=== PATIENT | female | born 1995 | race Caucasian/White ===

== ENCOUNTER 2019-06-04 23:52 | Emergency (ER) | payer OTHER ==
--- NOTE | 2019-06-04 23:56 | PDOC ---
History of Present Illness - General Chief Complaint: Pain, Acute Stated Complaint: BURNING/THROBBING TO VAGINA Time Seen by Provider: 06/04/19 23:54 - History of Present Illness Initial Comments: This otherwise healthy 23-year-old female presents with 2 day history of vaginal and vulvar itching/burning pain. Patient denies vaginal discharge. She is currently menstruating and has had regular menstrual cycles. No previous history of vaginal discharge, discomfort or itching. No history of STD. Patient states that she is not sexually active and denies previous sexual activity. She has had mild burning with urination and one episode of urinary urgency in the last 1-2 days. No history of previous urinary tract infection. No recent fever/chills. She denies abdominal or flank pain. No recent antibiotic or other medication use. She had upper respiratory infection last week which was not treated and resolved spontaneously. Past History - Past Medical History Allergies/Adverse Reactions: Allergies Allergy/AdvReac Type Severity Reaction Status Date / Time No Known Allergies Allergy Verified 06/04/19 23:53 Home Medications: Ambulatory Orders Fluconazole [Diflucan] 150 mg PO ONCE #2 tablet 06/05/19 Review of Systems - Review of Systems Able to Perform ROS?: Yes Comments:: 12 point review of systems is negative except for what is noted in the history of present illness *Physical Exam - Physical Exam Comments: GENERAL: Adult female, mildly anxious but in no acute distress HEAD: Normal with no signs of trauma. EYES: PERRLA, EOMI, sclera anicteric, conjunctiva clear. ENT: Ears normal, nares patent, oropharynx clear without exudates. Moist mucous membranes. NECK: Normal range of motion, supple without lymphadenopathy, JVD, or masses. LUNGS: Breath sounds equal, clear to auscultation bilaterally. No wheezes, and no crackles. HEART:Regular rate and rhythm, normal S1 and S2 without murmur, rub or gallop. ABDOMEN:.normal bowel sounds No guarding,tenderness or rebound.No masses No distention. PELVIC: Moderate erythema, mild edema of external vulva; scant whitish discharge without odor EXTREMITIES: Normal range of motion, no edema. No clubbing or cyanosis. No erythema, or tenderness. NEUROLOGICAL: Cranial nerves II through XII grossly intact. Normal speech. No focal neurological deficits. MUSCULOSKELETAL: Back non-tender to palpation, no CVA tenderness SKIN: Warm, Dry, normal turgor, no rashes or lesions noted. Medical Decision Making - Medical Decision Making 23-year-old woman presents with 2 day history of progressive itching and burning pain of the vagina and external vulva. No recent antibiotic use; no recent sexual activity. No previous history of yeast infection or other acute gynecologic issues. exam as noted History and physical exam consistent with vulvovaginal candidiasis UA/urine culture and sensitivity sent to fully rule out UTI but patient will be treated presumptively for the candidiasis. Prescription sent for Diflucan 150 mg 1 tablet to be taken once with additional tablet(to be taken 24 hours if symptoms are persistent). Meanwhile, the patient should drink plenty of water, rest. She should plan on following up with her rn case manager hospice within the next 3 days. She should see her rn case manager hospice sooner or return to the ER if she has recurrent severe symptoms. *DC/Admit/Observation/Transfer Diagnosis at time of Disposition: Vaginal candidiasis - Discharge Dispostion Disposition: HOME Condition at time of disposition: Stable - Prescriptions Prescriptions: Fluconazole [Diflucan] 150 mg PO ONCE #2 tablet - Referrals - Patient Instructions Printed Discharge Instructions: DI for Vaginal Yeast Infection Additional Instructions: Diflucan 150 mg by mouth once If symptoms are still present in 24 hours, take an additional 150 mg tablet Drink plenty of water Follow-up with your rn case manager hospice within the next 3 days Follow-up with your general medical doctor within 1 week Return to ER if you have worsening pain or develop vomiting or fever - Post Discharge Activity
[2019-06-04 23:58] VITALS: TEMP 98.1; BMI 29.1
[2019-06-05 00:28] VITALS: BP 122/79; PULSE 81
[2019-06-05 01:12] LABS: EPI CELLS 1.4 /HPF (0-5/HPF); HYALINE CASTS 1 /lpf (0-8); PH,URINE 5.5 (5.0-8.0); URINE APPEARANCE CLEAR; URINE BACTERIA 15.4 /hpf (NEGATIVE); URINE BILIRUBIN NEGATIVE (NEGATIVE); URINE COLOR YELLOW; URINE GLUCOSE (UA) NEGATIVE (NEGATIVE); URINE KETONE 1+ (NEGATIVE); URINE LEUK ESTERASE NEGATIVE (NEGATIVE); URINE NITRITE NEGATIVE (NEGATIVE); URINE PROTEIN NEGATIVE (NEGATIVE); URINE RBC 5 /hpf (0-4); URINE UROBILINOGEN 0.2 mg/dL (0.2-1.0); URINE WBC 2 /hpf (0-5)
== END 2019-06-05 00:32 | disposition home or self-care (01) ==
LOC: FER 23:52
DX: B37.3 Candidiasis of vulva and vagina (principal)
CPT/HCPCS: 81003; 87077; 87086; 99281-25